=== PATIENT | male | born 1970 | race Caucasian/White ===

== ENCOUNTER → 2025-01-02 14:13 | Outpatient (CLI) | payer MEDICARE, OTHER, SELFPAY ==
--- NOTE | 2025-01-03 10:03 | DI.NM.S_ITS ---
DATE OF SERVICE: 01/02/2025 EXERCISE TREADMILL STRESS TEST PROCEDURE: Exercise treadmill stress test without imaging. ORDERING PROVIDER: Cristi Metz MD INDICATIONS: The patient is a 54-year-old male with multiple sclerosis, palpitations, atypical chest discomfort, exertional dyspnea, and coronary artery calcification. FINDINGS: 1. The patient was able to exercise for 6 minutes 37 seconds on a standard Owen protocol, suggesting moderately reduced exercise capacity with an LISETTE of +23%, achieving 7.0 METS. 2. He had a normal heart rate and blood pressure response to exercise, achieving a maximum heart rate of 156 bpm (94% of his predicted maximum). He was hypertensive at rest at 150/110, increasing to a maximum of 180/100 at peak exercise. 3. He had moderate exertional dyspnea but no chest discomfort or other anginal symptoms. 4. His resting ECG shows sinus rhythm with borderline T-wave inversions in the inferior leads that become accentuated with stress but without any significant ST-segment shifts or arrhythmias. IMPRESSION: 1. Normal exercise treadmill stress test for ischemia. 2. Moderately reduced exercise capacity without angina or arrhythmias. He was hypertensive at rest but with a normal blood pressure response. Ishmael Gary - BEKAH/robbie/YURI doc#: [id number]/job#: [id number] dd: 01/02/2025 17:36:00 dt: 01/02/2025 23:48:00 DICTATING MD/COPIES TO: Andreas Ramirez MD; Cristi Metz MD COPIES MNE: JOSH;
== END ==
LOC: NUCM 14:16
PROVIDERS: PCP Nurse Practitioner Acute Care; Referring Provider Nurse Practitioner Acute Care; Visit Provider Internal Medicine Cardiovascular Disease
DX: R07.89 Other chest pain (principal); E78.5 Hyperlipidemia, unspecified; R00.2 Palpitations
CPT/HCPCS: 93017